=== PATIENT | female | born 1950 | race Two or more races ===

== ENCOUNTER 2018-07-29 14:55 | Emergency (ER) | payer OTHER | END 2018-07-29 17:38 | disposition home or self-care (01) | LOC: ED 14:55 | DX: S30.1XXA Contusion of abdominal wall, initial encounter (principal); S80.02XA Contusion of left knee, initial encounter; S80.01XA Contusion of right knee, initial encounter; E11.9 Type 2 diabetes mellitus without complications; V49.50XA Passenger injured in collision with unspecified motor vehicles in traffic accident, initial encounter | CPT/HCPCS: 71260; 73560; 74177; 80053; 85025; 85610; 99284-25; Q9967 ==